=== PATIENT | female | born 1995 | race Caucasian/White ===

== ENCOUNTER 2018-09-23 19:16 | Emergency (ER) | payer BC, OTHER ==
[~2018-09-23] VITALS: Ht 165.1 cm; Wt 147.3 kg
[2018-09-23] MEDS ORDERED: IBUPROFEN 600 MG TAB PO ONE (20:45)
--- NOTE | 2018-09-23 22:27 | REPVR ---
EXAM: XR Left Ankle EXAM DATE/TIME: 09/23/2018 7:59 PM CLINICAL HISTORY: 23 years old, female; Injury or trauma; Injury history: Stepped through floor; Initial encounter; Sprain or strain; Left; Injury date: Today; Patient HX: PT states lateral and posterior ankle pain throughout TECHNIQUE: Imaging protocol: XR Left ankle. Views: 3 or more views. COMPARISON: No relevant prior studies available. FINDINGS: Bones/joints: The ankle mortise is intact. A joint effusion is present. There is a thin osseous sliver adjacent to the fifth metatarsal on the oblique view. There is a 1.4 cm osseous fragment posterior to the talus on the lateral view. Soft tissues: Soft tissue swelling about the ankle. IMPRESSION: 1. Diffuse soft tissue swelling. 2. Thin osseous sliver adjacent to the base of the 5th metatarsal on the oblique view, which may represent an age-indeterminate fracture. 3. Osseous fragment posterior to the talus on the lateral view, which may be an os trigonum although does not have the typical configuration, and fracture is not excluded. Recommend clinical correlation with physical exam as well as dedicated foot radiographs for further assessment. Electronically signed by: Emili Alas On 09/23/2018 22:27:03 PM
[2018-09-23 23:17] VITALS: BP 139/74
--- NOTE | 2018-09-25 13:23 | ED PDOC ---
Post-Departure Follow-Up [facility] faxed formal report of left ankle film for fu Iglesia Garcia MD Sep 25, 2018 13:23
== END 2018-09-23 23:23 | disposition home or self-care (01) ==
LOC: M ED 19:16
DX: M25.472 Effusion, left ankle (principal); Q68.8 Other specified congenital musculoskeletal deformities; W19.XXXA Unspecified fall, initial encounter; Y92.099 Unspecified place in other non-institutional residence as the place of occurrence of the external cause; Y93.9 Activity, unspecified; Y99.9 Unspecified external cause status; Z79.899 Other long term (current) drug therapy

== ENCOUNTER 2018-10-01 17:55 | Emergency (ER) | payer BC, OTHER ==
[~2018-10-01] VITALS: Ht 165.1 cm; Wt 145.4 kg
[2018-10-01] MEDS ORDERED: DULO1CAP2 (18:06)
[2018-10-01] MEDS ORDERED: NAPR-885 PO (18:16)
[2018-10-01] MEDS ORDERED: HYDR12.55 PO (18:16)
[2018-10-01] MEDS ORDERED: PIOG1TAB55 PO (18:17)
[2018-10-01 20:52] VITALS: BP 148/63
== END 2018-10-01 20:55 | disposition home or self-care (01) ==
LOC: M ED 17:55
DX: M79.9 Soft tissue disorder, unspecified (principal); S82.892D Other fracture of left lower leg, subsequent encounter for closed fracture with routine healing; X58.XXXA Exposure to other specified factors, initial encounter; Y92.89 Other specified places as the place of occurrence of the external cause